=== PATIENT | female | born 1940 | race Caucasian/White ===

== ENCOUNTER 2017-08-05 16:11 | Observation (INO) | payer OTHER ==
[~2017-08-05] VITALS: Ht 142.2 cm; Wt 65.2 kg
[2017-08-05 16:52] LABS: HEMATOCRIT 42.4 % (36.0-46.0); HEMOGLOBIN 14.2 G/DL (11.9-15.5); MCH 30.5 PG (29.0-34.0); MCHC 33.5 G/DL (30.0-36.0); PLATELET COUNT 228 K/uL (156-360); RBC DIS.WIDTH-CV 15.1 % (11.8-14.6); RED BLOOD COUNT 4.66 M/uL (3.80-5.20); WHITE BLOOD COUNT 9.7 K/uL (4.1-10.2)
[2017-08-05 17:01] LABS: CHLORIDE 105 mEq/L (99-109); POTASSIUM 3.4 mEq/L (3.7-5.4); SODIUM 141 mEq/L (136-147)
[2017-08-05 17:02] LABS: GLUCOSE 199 mg/dL (70-99); PTT 27.6 SEC (25-37)
[2017-08-05 17:06] LABS: CREATININE 0.8 mg/dL (0.6-1.3); GFR ESTIMATE (CALCULATED) > 59 mL/min/
[2017-08-05 17:07] LABS: UREA NITROGEN (BUN) 12 mg/dL (9-23)
[2017-08-05] MEDS ORDERED: STELARA45 MG/0.1 SC (17:47)
[2017-08-05] MEDS ORDERED: COZAAR50 MG PO (17:48)
[2017-08-05] MEDS ORDERED: LIPITOR10 MG PO (17:48)
[2017-08-05] MEDS ORDERED: SYMBICORT60 INHALAT IH (17:49)
[2017-08-05] MEDS ORDERED: SORIATANE25 MG PO (17:49)
[2017-08-05] MEDS ORDERED: WOMEN'S MULTI200 MCG PO (17:49)
[2017-08-05] MEDS ORDERED: ZYRTEC10 M3 PO (17:50)
[2017-08-05 19:39] LABS: ERTH.SED.RATE 5 MM/HR (0-30)
[2017-08-05 21:20] LABS: HDL CHOLESTEROL 69 MG/DL (Desirable>=50); LDL CHOLESTEROL 67 mg/dL (Desirable<100); NON-HDL CHOLESTEROL 108 mg/dL (Desirable<160); TOTAL CHOLESTEROL 177 mg/dL (Desirable<200); TRIGLYCERIDES 204 MG/DL (Normal: <150)
[2017-08-06 03:57] VITALS: BP 158/74
[2017-08-06 08:45] VITALS: BP 115/72
[2017-08-06 09:46] LABS: HEMOGLOBIN A1c (GLYCOHEMOGLOB) 5.7 % (Below 5.7)
[2017-08-06] MEDS ORDERED: CLOPIDOGREL75 MG PO (14:12)
== END 2017-08-06 16:47 | disposition home or self-care (01) ==
LOC: EME 16:11 → 5WEST 20:02 → EDOF 20:02 → ENRESERV 20:09 → 5WEST 21:18
PROVIDERS: Physician Assistant
DX: H54.62 Unqualified visual loss, left eye, normal vision right eye (principal); R73.9 Hyperglycemia, unspecified; I10 Essential (primary) hypertension; E78.5 Hyperlipidemia, unspecified; L40.9 Psoriasis, unspecified; R51 Headache; I34.0 Nonrheumatic mitral (valve) insufficiency; Z79.02 Long term (current) use of antithrombotics/antiplatelets; Z88.6 Allergy status to analgesic agent
CPT/HCPCS: 70450; 70551; 71046; 80048; 80061; 83036; 85027; 85610; 85652; 85730; 93005; 93306; 93880; 94640; 94640 76; 99281; 99285; G0378; J1644